=== PATIENT | male | born 1980 | race Hispanic/Latino ===

== ENCOUNTER 2018-09-07 23:48 | Emergency (ER) | payer MEDICARE | END 2018-09-08 00:41 | disposition home or self-care (01) | LOC: EDH 23:48 | DX: S29.012A Strain of muscle and tendon of back wall of thorax, initial encounter (principal); S39.012A Strain of muscle, fascia and tendon of lower back, initial encounter; V59.49XA Driver of pick-up truck or van injured in collision with other motor vehicles in traffic accident, initial encounter; Y93.89 Activity, other specified; Y92.89 Other specified places as the place of occurrence of the external cause; Y99.8 Other external cause status | CPT/HCPCS: 99281 ==

== ENCOUNTER 2019-03-28 21:07 | Emergency (ER) | payer MEDICARE ==
[2019-03-28] MEDS ORDERED: OCTYL 2-CYANOACRYLATE 1 EACH TP ONE (22:11)
== END 2019-03-28 23:14 | disposition home or self-care (01) ==
LOC: EDH 21:07
DX: S61.411A Laceration without foreign body of right hand, initial encounter (principal); W26.8XXA Contact with other sharp object(s), not elsewhere classified, initial encounter; Y93.G3 Activity, cooking and baking; Y92.098 Other place in other non-institutional residence as the place of occurrence of the external cause; Y99.8 Other external cause status
CPT/HCPCS: 12041; 73130